=== PATIENT | female | born 1965 | race Hispanic/Latino ===

== ENCOUNTER 2018-11-26 11:59 | Emergency (ER) | payer BC ==
[~2018-11-26] VITALS: Ht 157.5 cm; Wt 111.1 kg
--- OUTSIDE RECORDS SUMMARY | 2018-11-26 12:03 | XMS REPORT | Summary of Care ---
Author Author LUBNA TITUS N.P. 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 Unavailable Unavailable Unavailable Unavailable Functional Status Name Dates Details Functional status health issues are not documented Status: Name Dates Details Cognitive status health issues are not documented Status: Problems Name Dates Details Right hip pain (719.45, M25.551) Status: Active Chronic pain of right ankle (719.47, M25.571) Status: Active Right knee pain (719.46, M25.561) Status: Active Pronation of right foot (736.79, M21.6X1) Status: Active Pes planus of right foot (734, M21.41) Status: Active Acute pain of right knee (719.46, M25.561) Status: Active Lumbar radiculopathy (724.4, M54.16) Status: Active Lower back pain (724.2, M54.5) Status: Active Medications Name Dates Details Glucosamine 1500 Complex Oral Capsule Active Vanquish TABS * Refills: 0 Active HydroCHLOROthiazide 25 MG Oral Tablet * Refills: 0 Active Florajen3 Oral Capsule * Refills: 0 Active Amoxicillin 875 MG Oral Tablet * Refills: 0 Active Meloxicam 7.5 MG Oral Tablet TAKE 1 TABLET DAILY WITH FOOD. * Quantity: 30 Refills: 2 [facility] TITUS N.P. * Start : 12-Mar-2017 Active TraMADol HCl - 50 MG Oral Tablet TAKE 1 TABLET 4 TIMES DAILY NEEDED FOR PAIN. * Quantity: 60 Refills: 0 [facility] TITUS N.P. * Start : 23-Apr-2017 Active Allergies and Adverse Reactions Name Dates Details No Known Drug Allergies (Allergy) Status: Active Past Medical History Name Dates Details History of arthritis (V13.4, Z87.39) Status: Resolved History of hypertension (V12.59, Z86.79) Status: Resolved History of staphylococcal infection (V12.09, Z86.19) Status: Resolved Procedures Procedure Dates Details MRI Spine lumbar wo contrast [id number] Date: 12-Mar-2017 History of section Completed Immunization Name Dates Details Immunizations not documented Family History Name Dates Details Family history of cardiac disorder (V17.49, Z82.49) Status: Active Family history of cerebrovascular accident (CVA) (V17.1, Z82.3) Status: Active Name Dates Details Family history of diabetes mellitus (V18.0, Z83.3) Status: Active Family history of cardiac disorder (V17.49, Z82.49) Status: Active Family history of hypertension (V17.49, Z82.49) Status: Active Social History Name Dates Details - Status: Name Dates Details Never smoker Vital Signs Date Test Result Details [id number] BP Systolic 129 mm[Hg] Status: Comments: Location: LUE; Position: Sitting BP Diastolic 74 mm[Hg] Status: Comments: Location: LUE; Position: Sitting Height 62 in Status: Heart Rate 76 /min Status: Comments: Location: L Radial; Results Date Description Value Details Results not documented Plan of Care Name Dates Details Planned Observations Planned Goals not documented Interventions Provided Medication Changes* TraMADol HCl - 50 MG Oral Tablet - Start Plan* Patient Education/Instructions: * Patient Education Provided * Reassurance * Counseling Provided - Discussed with Family/Patient * Family/Patient given opportunity to ask questions. * Family/Patient Verbalized Understanding. * Patient/Parent to call or return with any abnormal changes * Follow Up: * Return to the clinic as needed. * Pt has seen ortho spine and needs surgery. She is thinking about it for now. We discussed PT but wants to hold off. Pt given rx for Tramadol for pain control for now. Instructions Name Dates Details Instructions not documented Encounters Appointment; LUBNA TITUS NP Encounter Diagnosis: Problem not documented On: 12-Mar-2017 11:15 Appointment; LUBNA TITUS NP Encounter Diagnosis: Problem not documented On: 23-Apr-2017 8:30
[2018-11-26] MEDS ORDERED: TRAMADOL HCL 50 MG TAB PO ONE (13:00)
--- NOTE | 2018-11-26 14:39 | Diagnostic Imaging Report ---
LEFT FEMUR X-RAY - 4 VIEWS HISTORY: ^r/o fx COMPARISON: None available. FINDINGS: Bones: No acute displaced fracture. Osseous alignment is within normal limits. Joints: Mild degenerative changes of the left hip and greater trochanter. Soft tissues: The soft tissues appear unremarkable. IMPRESSION: No acute radiographic abnormality. Signed by: Dr. Mary Richmond M.D. on 11/26/2018 2:36 PM
--- NOTE | 2018-11-26 14:40 | Diagnostic Imaging Report ---
Cervical Spine, 5 views HISTORY: Pain. Evaluate for fracture COMPARISON: None. FINDINGS: Limited sensitivity for detection of subtle fractures and ligamentous abnormalities. On the lateral view, the cervical spine is visualized from the skull base to T1. The alignment is normal. No acute displaced fracture involving the visualized cervical spine. Disc Spaces and Uncovertebral Joints: Severe disc space narrowing and anterior osteophytosis throughout the cervical spine. Facets: The facet joints are unremarkable. IMPRESSION: No acute radiographic abnormality. Advanced degenerative changes of the cervical spine. Signed by: Dr. Mary Richmond M.D. on 11/26/2018 2:37 PM
[2018-11-26 14:42] VITALS: BP 125/79
== END 2018-11-26 14:50 | disposition home or self-care (01) ==
LOC: ER 11:59
DX: M54.2 Cervicalgia (principal); M79.659 Pain in unspecified thigh; V47.0XXA Car driver injured in collision with fixed or stationary object in nontraffic accident, initial encounter; Y92.481 Parking lot as the place of occurrence of the external cause
CPT/HCPCS: 72050; 99283

== ENCOUNTER 2022-10-26 09:20 | Emergency (ER) | payer BC ==
[~2022-10-26] VITALS: Ht 157.5 cm; Wt 104.3 kg
[2022-10-26 09:50] VITALS: O2SAT 100
[2022-10-26] MEDS ORDERED: DICYCLOMINE HCL20 MG PO (10:12)
== END 2022-10-26 10:36 | disposition home or self-care (01) ==
LOC: ER 10:02
DX: R10.9 Unspecified abdominal pain (principal); I10 Essential (primary) hypertension
CPT/HCPCS: 99282

== ENCOUNTER 2024-01-05 08:28 | Emergency (ER) | payer BC ==
[~2024-01-05] VITALS: Ht 157.5 cm; Wt 93.9 kg
[~2024-01-05 08:28] MED LIST: BETIMOL5 M1 OU; BIOTIN1 MG PO; CYCLOBENZAPRINE5 MG PO; DICYCLOMINE HCL20 MG PO; ESIDRIX25 MG PO; FOLIC ACID0.4 MG PO; LISINOPRIL10 MG PO; METHOTREXATE2.5 MG PO; NAPROSYN500 MG PO; VYZULTA2.5 ML OU
[2024-01-05 09:30] LABS: BASOPHILS % 0.7 % (0.0-1.0); EOSINOPHILS % 0.5 % (0.0-6.0); HEMATOCRIT 39.7 % (34.2-44.1); LYMPHOCYTES # (AUTO) 1.7 (1.0-3.2); LYMPHOCYTES % 31.6 % (18.0-39.1); MEAN CORPUSCULAR HEMOGLOBIN 33.7 pg (28-32); MEAN CORPUSCULAR HGB CONC 32.7 g/dL (31-35); MEAN CORPUSCULAR VOLUME 102.8 fL (81-99); MONOCYTES # (AUTO) 0.5 (0.2-0.8); MONOCYTES % 8.2 % (4.4-11.3); NEUTROPHILS # (AUTO) 3.2 (2.1-6.9); NEUTROPHILS % 58.6 % (38.7-80.0); PLATELET COUNT 350 x10e3/uL (140-360); RED BLOOD COUNT 3.86 x10e6/uL (3.6-5.1); RED CELL DISTRIBUTION WIDTH 12.9 % (11.7-14.4); WHITE BLOOD COUNT 5.51 x10e3/uL (4.8-10.8)
[2024-01-05 09:51] LABS: ALBUMIN 3.9 g/dL (3.5-5.0); ALBUMIN/GLOBULIN RATIO 1.2 (0.8-2.0); ANION GAP 12.7 mmol/L (8-16); BILIRUBIN,TOTAL 0.4 mg/dL (0.2-1.2); CALCIUM 9.6 mg/dL (8.4-10.2); CREATININE, SERUM 0.74 mg/dL (0.57-1.11); POTASSIUM 3.7 mmol/L (3.5-5.1); TOTAL PROTEIN 7.1 g/dL (6.5-8.1)
[2024-01-05 10:09] LABS: BILIRUBIN,URINE NEGATIVE (NEGATIVE); CLARITY,URINE CLEAR (CLEAR); COLOR,URINE YELLOW (YELLOW); GLUCOSE, URINE NEGATIVE (NEGATIVE); KETONES,URINE NEGATIVE (NEGATIVE); LEUKOCYTE ESTERASE ,URINE NEGATIVE (NEGATIVE); NITRITE,URINE NEGATIVE (NEGATIVE); PH,URINE 5.5 (5 - 7); PROTEIN,URINE DIPSTICK NEGATIVE (NEGATIVE); URINE UROBILINOGEN 0.2 mg/dL (0.2 - 1)
[2024-01-05] MEDS ORDERED: CYCLOBENZAPRINE5 MG PO (10:23)
[2024-01-05 10:25] LABS: BACTERIA,URINE RARE /HPF; EPITHELIAL CELLS,URINE RARE /LPF; RBC,URINE 0-5 /HPF (0-5); URIC ACID CRYSTALS,URINE RARE (FEW); WBC,URINE (MAN) 0-5 /HPF (0-5)
[2024-01-05 10:30] VITALS: PULSE 66; RESP 16; TEMP 97.9; O2SAT 100
== END 2024-01-05 10:30 | disposition home or self-care (01) ==
LOC: ER 08:37
DX: R10.11 Right upper quadrant pain (principal); M06.9 Rheumatoid arthritis, unspecified; R11.0 Nausea; I10 Essential (primary) hypertension; M19.09 Primary osteoarthritis, other specified site
CPT/HCPCS: 36415; 74176; 80053; 81001; 83690; 85025; 93005; 99284

== ENCOUNTER 2024-09-08 10:50 | Emergency (ER) | payer SELFPAY ==
[~2024-09-08] VITALS: Ht 157.5 cm; Wt 93.9 kg
[2024-09-08 11:25] VITALS: PULSE 75; RESP 18; TEMP 97.3; O2SAT 100
[2024-09-08] MEDS ORDERED: METHOCARBAMOL750 MG PO (12:53)
== END 2024-09-08 13:58 | disposition home or self-care (01) ==
LOC: ER 11:30
DX: M25.512 Pain in left shoulder (principal); S29.012A Strain of muscle and tendon of back wall of thorax, initial encounter; I10 Essential (primary) hypertension; M06.9 Rheumatoid arthritis, unspecified; M19.09 Primary osteoarthritis, other specified site
CPT/HCPCS: 99283

== ENCOUNTER 2024-10-22 14:17 | Emergency (ER) | payer BC ==
[~2024-10-22] VITALS: Ht 157.5 cm; Wt 93.9 kg
[~2024-10-22 14:17] MED LIST changes: +METHOCARBAMOL750 MG PO
[2024-10-22 14:23] VITALS: PULSE 79; RESP 18; TEMP 97.3; O2SAT 100
[2024-10-22 15:35] LABS: INFLUENZA A AG NEGATIVE (NEGATIVE); INFLUENZA B AG NEGATIVE (NEGATIVE)
[2024-10-22 15:36] LABS: CORONAVIRUS COVID-19 AG POSITIVE (NEGATIVE)
[2024-10-22] MEDS ORDERED: PAXLOVID 300-11 EAC1 PO (17:32)
== END 2024-10-22 17:36 | disposition home or self-care (01) ==
LOC: ER 14:32
DX: R05.9 Cough, unspecified (principal); U07.1 COVID-19; I10 Essential (primary) hypertension; M06.9 Rheumatoid arthritis, unspecified; M19.09 Primary osteoarthritis, other specified site
CPT/HCPCS: 99283

== ENCOUNTER 2025-01-30 17:39 | Emergency (ER) | payer BC ==
[~2025-01-30] VITALS: Ht 157.5 cm; Wt 93.9 kg
[~2025-01-30 17:39] MED LIST changes: +PAXLOVID 300-11 EAC1 PO
[2025-01-30 18:38] VITALS: TEMP 98
[2025-01-30 19:45] VITALS: RESP 18
[2025-01-30] MEDS: KETOROLAC TROMETHAMINE 60 MG/2 ML VIAL IM STA (19:53)
[2025-01-30 21:00] VITALS: PULSE 76; O2SAT 100
[2025-01-30] MEDS ORDERED: KETOROLAC TROME10 MG PO (21:30)
== END 2025-01-30 21:45 | disposition home or self-care (01) ==
LOC: ER 18:05
DX: R07.89 Other chest pain (principal); I10 Essential (primary) hypertension; M06.9 Rheumatoid arthritis, unspecified; M19.09 Primary osteoarthritis, other specified site
CPT/HCPCS: 71250; 93005; 99283; J1885

== ENCOUNTER 2025-02-02 08:57 | Emergency (ER) | payer BC ==
[~2025-02-02] VITALS: Ht 157.5 cm; Wt 93.9 kg
[~2025-02-02 08:57] MED LIST changes: +KETOROLAC TROME10 MG PO
[2025-02-02 09:10] VITALS: PULSE 68; RESP 17; TEMP 97.6; O2SAT 100
[2025-02-02 09:56] LABS: BASOPHILS % 0.6 % (0.0-1.0); EOSINOPHILS % 1.7 % (0.0-6.0); LYMPHOCYTES % 24.6 % (18.0-39.1); MONOCYTES % 8.1 % (4.4-11.3); NEUTROPHILS % 64.8 % (38.7-80.0); RED CELL DISTRIBUTION WIDTH 13.1 % (11.7-14.4)
[2025-02-02 10:27] LABS: EST GLOMERULAR FILTRATION RATE 104.0 ML/MIN (>=60)
== END 2025-02-02 11:17 | disposition home or self-care (01) ==
LOC: ER 09:01
DX: S29.012A Strain of muscle and tendon of back wall of thorax, initial encounter (principal); S29.011A Strain of muscle and tendon of front wall of thorax, initial encounter
CPT/HCPCS: 36415; 80053; 83690; 84484; 85025; 93005; 99283